=== PATIENT | female | born 1935 | race Caucasian/White ===

== ENCOUNTER → 2019-07-14 13:41 | Outpatient (CLI) | payer MEDICARE, OTHER, SELFPAY ==
--- NOTE | 2019-07-14 15:38 | PM.TREADMILL ---
Cardiac Stress Test Report Referral & Results Date Patient Seen: 07/14/19 Time Patient Seen: 15:39 Requesting provider: Lluvia Lewis Indication: dyspnea Rest ECG: normal sinus rhythm Procedure Note: Standard [facility]chel protocol, 6:08, 6.2 METS Very good exercise capacity, JENNIE -31% Normal hemodynamic response to exercise No chest pain or anginal symptoms Resting ECG normal, non specific ST changes; no ectopy Impression: normal exercise stress test Please note: Actual ECG tracings can be found in the PACS system.
== END ==
PROVIDERS: Family Provider Family Medicine Geriatric Medicine; PCP Family Medicine Geriatric Medicine; Referring Provider Family Medicine; Visit Provider Family Medicine
DX: R06.09 Other forms of dyspnea (principal)
CPT/HCPCS: 93017